=== PATIENT | female | born 1970 | race Caucasian/White ===

== ENCOUNTER 2024-02-15 12:31 | Emergency (ER) | payer BC, SELFPAY ==
[2024-02-15 12:32] VITALS: BP 143/85
--- NOTE | 2024-02-15 13:26 | ED.GENMED ---
History of Present Illness
General
Chief Complaint: Skin Problem
Source: patient
Time Seen by Provider: 02/15/24 13:17
History of Present Illness
History of Present Illness:
54yo female with a history of anxiety and obesity presenting for evaluation of ecchymosis. Patient reports unexplained bruising over the past 3-4 weeks. The bruising primarily occurs on her bilateral legs but also can occur on her abdomen. She
denies any trauma. The bruising will resolve after a few days but then recur in a different location. Patient was seen by her PCP for these symptoms and had blood work about 2 weeks ago which was reportedly normal. She was referred to a
mixer slagman but is unable to get an appointment until next week. Patient is very concerned because her symptoms seem to be worse and she decided to come to the ED. She is otherwise asymptomatic and denies any fevers, dizziness, syncope, shortness
of breath, hematochezia, melena. She is not on any blood thinners.
Phy Exam
General Physical Exam
General Presentation: well appearing and no apparent distress
General age: appears stated age
General Skin: warm and dry
General Habitus: normal
General Mental: alert
ENT Exam
ENT Exam: normocephalic
Pulmonary Exam
Pulmonary Exam: no respiratory distress
[place] Coma Scale
Eye Opening: Spontaneous
Verbal Response: Oriented
Motor Response: Obeys Commands
GCS Total Score: 15
Skin Exam
Skin Exam: warm/dry and other (Scattered areas of ecchymosis to bilateral lower extremities in various stages of healing)
Psychiatric Exam
Psychiatric Exam: normal mood/affect
Course
Orders/Labs/Results
Orders:
Orders
02/15/24 13:43
Complete Blood Count/With Diff Urgent
Comprehensive Metabolic Panel Urgent
PTT Urgent
Prothrombin Time Urgent
Abnormal Lab Results
02/15/24
13:43
Hct 36.8 L %
(37.0-47.0)
02/15/24 13:43
02/15/24 13:43
Vital Signs
Initial and Last Documented VS:
Initial Vital Signs
Temp Pulse Resp BP Pulse Ox
98.1 F 81 18 143/85 97
02/15/24 12:32 02/15/24 12:32 02/15/24 12:32 02/15/24 12:32 02/15/24 12:32
Last Documented Vital Signs
Temp Pulse Resp BP Pulse Ox
98.0 F 81 18 142/119 98
02/15/24 15:02 02/15/24 12:32 02/15/24 12:32 02/15/24 14:01 02/15/24 15:02
MDM/Problems Addressed
Differential Diagnosis Includes:
54yoF here with unexplained bruising x 3-4 weeks. Had outpatient blood work 2 weeks ago that was reportedly normal. No blood thinners. Otherwise asymptomatic. She is afebrile and hemodynamically stable. She is well appearing in no distress.
Scattered ecchymosis noted to bilateral lower extremities. Differential diagnosis includes but is not limited to: clotting disorder, ITP, anemia, no clinical signs of DVT
Initial ED plan: Check CBC, CMP, and coags.
*Critical Care Note
Total Time (30-74mins, 75-104mins- exclusive of procedures): Not Applicable
Update Note
Update Note:
Hemoglobin and platelets normal. Coags WNL. Patient concerned about possible leukemia. No blasts or leukocytosis on labs. No indication for admission. Patient has an appt scheduled for next week with hematology. ED return precautions discussed. She
was discharged in stable condition.
ED Attending Note
-
Portions of this chart may have been created with voice recognition software.� Occasional wrong word or��sound alike� substitutions may have occurred due to the inherent limitations of voice recognition software.
Discharge Plan
Departure
Patient Disposition: Home (Routine Discharge)
Date of Disposition: 02/15/24
Time of Disposition: 14:35
Patient with high blood pressure during this ER visit?: No
Discharge Problem:
Ecchymosis
Instructions: Contusion
Referrals:
Valentine Solis, [Family Provider] -
Activity Restrictions/Additional Instructions:
Please follow-up with the mixer slagman next week as previously scheduled.
Return to the ER with any new or worsening symptoms.
Interventions
Interventions:
*Risk Screen - Suicide Last Done: 02/15/24 12:32
*General Assessment Last Done: 02/15/24 12:32
*Neglect/Abuse Screening Last Done: 02/15/24 12:32
ED- Fall Risk Assessment Last Done: 02/15/24 15:02
*ED COVID-19 Vaccine History Last Done: 02/15/24 15:02
*Nursing Disposition Last Done: 02/15/24 15:02
ED-Skin Assessment Last Done: 02/15/24 13:47
Discharge Date and Time
Discharge Date/Time: 02/15/24 15:04
Print Language: BULGARIAN
[2024-02-15 13:45] VITALS: BP 137/69
[2024-02-15 13:46] VITALS: BMI 38.3
[2024-02-15 13:56] LABS: % Basophils 0.7 % (0-2); % Eosinophils 1.7 % (0-6); % Immature Granulocytes 0.3 % (0-0.5); % Lymphocytes 26.6 % (20.5-51.1); % Monocytes 7.4 % (1.7-9.3); % Neutrophils 63.3 % (42.2-75.2); Absolute Eosinophils 0.1 10^3/uL (0-0.7); Absolute Lymphocytes 1.6 10^3/uL (1.2-3.4); Absolute Monocytes 0.5 10^3/uL (0.1-0.6); Absolute Neutrophils 3.8 10^3/uL (1.4-6.5); Hematocrit 36.8 % (37.0-47.0); Hemoglobin 12.2 g/dL (12.0-16.0); Mean Corp Hgb Conc. 33.2 g/dL (33.0-37.0); Mean Corpuscular Hgb 27.1 pg (27.0-31.0); Mean Corpuscular Volume 81.6 fL (81.0-99.0); Mean Platelet Volume 9.4 fL (7.4-10.4); Nucleated Red Blood Cells % 0 %; Platelet Count 247 10^3/uL (130-400); Red Blood Cell Count 4.51 10^6/uL (4.20-5.40); Red Cell Dist. Width 13.5 % (11.5-14.5); White Blood Cell Count 6.1 10^3/uL (4.8-10.8)
[2024-02-15 14:01] VITALS: BP 142/119
[2024-02-15 14:08] LABS: PT 14.2 Sec (11.4-14.6)
[2024-02-15 14:09] LABS: ALT (SGPT) 21 U/L (0-35); APTT 29.7 Sec (23.4-35.0); AST (SGOT) 23 U/L (14-36); Albumin 4.2 g/dl (3.5-5.0); Alkaline Phosphatase 105 U/L (38-126); Blood Urea Nitrogen 10 mg/dl (7-17); Calcium 9.4 mg/dl (8.4-10.2); Carbon Dioxide 25 mmol/L (22-30); Chloride 103 mmol/L (98-107); Estimated Creatinine Clearance 108 ml/min; Glucose 86 mg/dl (70-99); Potassium 3.9 mmol/L (3.5-5.1); Sodium 140 mmol/L (135-145); Total Bilirubin 0.5 mg/dl (0.2-1.3); Total Protein 6.5 g/dl (6.3-8.2); eGFR > 60.00
== END 2024-02-15 15:04 | disposition home or self-care (01) ==
LOC: EMR 12:31
PROVIDERS: Physician Assistant; EMERGENCY PHYSICIAN Emergency Medicine; FAMILY PHYSICIAN Family Medicine
DX: S80.12XA Contusion of left lower leg, initial encounter (principal); S80.11XA Contusion of right lower leg, initial encounter; X58.XXXA Exposure to other specified factors, initial encounter
CPT/HCPCS: 99283; 80053; 85025; 85610; 85730